=== PATIENT | female | born 1980 | race Caucasian/White ===

== ENCOUNTER 2016-09-12 14:58 | Outpatient (CLI) | payer OTHER ==
--- NOTE | 2016-09-12 21:12 | DIAGNOSTIC IMAGING REPORT ---
PROCEDURE: MR BRAIN W/WO CONTRAST INDICATION: HX BRAIN TUMOR, SLURRED SPEECH, HEADACHE TECHNIQUE: Multiplanar multisequence MRI imaging of the brain without contrast. Post administration of 20 ml ProHance gadolinium based IV contrast, three plane T1 fat sat sequences were obtained. COMPARISON: 05/13/2009 from an outside institution. FINDINGS: There are stable changes in the posterior inferior aspect of the posterior fossa at the midline and involving the left cerebellar hemisphere including a cortical defects and trace amount of left cerebellar gliosis. No enhancement to suggest recurrent tumor in the posterior fossa. There are surgical changes in the overlying dura and calvarium. The midline structures are otherwise normally formed. The ventricular system is normal in size. Basal cisterns are patent. Flow voids in the major intracranial vessels are normal. No vascular malformations seen post contrast. Signal throughout the mayer and white matter is otherwise normal. No restricted diffusion to suggest acute ischemia. No evidence of acute or chronic intraparenchymal or extra-axial hemorrhage. No mass, mass effect, or midline shift. No suspicious enhancement. Normal signal in the visible bones. The sinuses are normally aerated. Visible extracranial soft tissues including the orbits are normal. IMPRESSION: 1. Expected post surgical changes involving the posterior fossa of prior tumor resection. 2. No MR evidence of recurrent tumor or a separate acute intracranial process.
--- NOTE | 2016-09-12 23:10 | DIAGNOSTIC IMAGING REPORT ---
PROCEDURE: MR CERVICAL SPINE W/WO CONT INDICATION: HX BRAIN TUMOR, SLURRED SPEECH, HEADACHE TECHNIQUE: T1, T2, and STIR sagittal sequences. T2 and GRE axial sequences. Bilateral T2 sagittal obliques. Post administration of 20 ml ProHance gadolinium based IV contrast, sagittal and axial T1 fat sat sequences were obtained. COMPARISON: Plain films 05/09/2005 FINDINGS: Alignment and curvature: Normal. Vertebral bodies: Normal vertebral body height and marrow signal. No abnormal enhancement. Disc spaces: Normal disc height and signal. Spinal canal: Volume loss near the midline of the posterior inferior cerebellum. Midline structures appear otherwise normal. The cord is normal caliber and signal without suspicious signal or enhancement. Paraspinal soft tissues: No suspicious mass or fluid collection. C2-3: Normal. C3-4: Normal disc. Trace left-sided uncovertebral joint hypertrophy. Mild facet hypertrophy. C4-5: Normal disc. Mild facet hypertrophy. C5-6: Small broad-based left paracentral disc bulge superimposed on minor disc osteophyte complex. Mild left foraminal narrowing. C6-7: Normal. C7-T1: Normal. IMPRESSION: 1. Mild left foraminal narrowing and C5-6 level secondary to small broad-based disc bulge. Unlikely to be clinically significant at this extent. 2. No abnormal enhancement in the visible spinal canal or cord.
== END 2016-09-12 23:00 ==
LOC: MRI SRH 14:58
DX: R47.81 Slurred speech (principal); R51 Headache; Z85.841 Personal history of malignant neoplasm of brain